=== PATIENT | female | born 1960 | race Caucasian/White ===

== ENCOUNTER 2017-10-07 18:54 | Emergency (ER) | payer OTHER, BC ==
--- NOTE | 2017-10-07 20:01 | ER Document Report ---
HPI - HPI Pain Level: 5 Notes: Patient is a 57-year-old female with a history of hypertension who presents to the ED complaining of right wrist pain status post injury prior to arrival while at work. Patient states that she fell off of a ladder and landed on her wrist. She did not hit her head or have any loss of consciousness, nausea/ vomiting. Patient states that she is swelling and bruising to her wrist and has difficulty moving the range of motion because of the pain. She denies any drug allergies. She has no other concerns or complaints at this time. Patient is not on any blood thinners. Denies any headache, fever, head injury, neck pain, changes in vision/speech/mentation/hearing, URI, sore throat, chest pain, palpitations, syncope, cough, shortness of breath, wheeze, dyspnea, abdominal pain, nausea/vomiting/diarrhea, urinary retention, dysuria, hematuria, numbness/ tingling, muscle paralysis/weakness, or rash. - ROS Systems Reviewed and Negative: Yes All other systems reviewed and negative Past Medical History - Social History Smoking Status: Never Smoker Family History: Reviewed & Not Pertinent - Past Medical History Cardiac Medical History: Reports: Hx Hypercholesterolemia, Hx Hypertension Past Surgical History: Reports: Hx Section - Immunizations Hx Diphtheria, Pertussis, Tetanus Vaccination: Yes Vertical Provider Document - CONSTITUTIONAL Agree With Documented VS: Yes Notes: PHYSICAL EXAMINATION: GENERAL: Well-appearing, well-nourished and in no acute distress. Head: atraumatic. LUNGS: Breath sounds clear to auscultation bilaterally and equal. No wheezes rales or rhonchi. HEART: Regular rate and rhythm without murmurs, rubs, gallops. Musculoskeletal: Rt wrist: LROM to passive/active. Strength 4+/5 due to pain. N /V intact distal. + tenderness to the distal radius. No bony tenderness of the hand. Extremities: No cyanosis, clubbing, or edema b/l. Peripheral pulses 2+. Capillary refill less than 3 seconds. NEUROLOGICAL: Normal speech, normal gait. Normal sensory, motor exams PSYCH: Normal mood, normal affect. SKIN: Warm, Dry, normal turgor, no rashes or lesions noted. - INFECTION CONTROL TRAVEL OUTSIDE OF THE [place] IN LAST 30 DAYS: No Course - Re-evaluation Re-evalutation: 10/07/17 20:46 Patient is an afebrile, well-hydrated, 57-year-old female who presents to the ED with a distal radius fracture. Vitals are acceptable without any significant tachycardia, tachypnea, or hypoxia. PE is otherwise unremarkable for any neurovascular compromise, obvious tendon/ligament rupture, open fracture , septic joint. See x-ray result. Reviewed XR with Dr. Alfred. No reduction warranted at this time in the ED. splint was placed and sling provided. Motrin was given p.o. No other labs or imaging warranted at this time based on H&P. Conservative measures for symptoms. Call orthopedics tomorrow to schedule an appointment for further evaluation and management. Return to the ED with any worsening/concerning symptoms otherwise as reviewed in discharge. Patient is in agreement. Urine drug screen ordered per pt's request for worker's comp. - Vital Signs Vital signs: Temp Pulse Resp BP Pulse Ox 98.8 F 82 18 99 10/07/17 18:57 10/07/17 18:57 10/07/17 18:57 10/07/17 18:57 Procedures - Immobilization Right Wrist Time completed: 20:35 Pre-Proc Neuro Vasc Exam: Normal Immobilizer type: Sugar tong Performed by: PCT Post-Proc Neuro Vasc Exam: Normal, Unchanged from pre-exam Discharge - Discharge Clinical Impression: Right radial fracture Qualifiers: Encounter type: initial encounter Radius location: distal Fracture type: closed Fracture morphology: unspecified fracture morphology Qualified Code(s): S52.501A - Unspecified fracture of the lower end of right radius, initial encounter for closed fracture Condition: Stable Disposition: HOME, SELF-CARE Instructions: Fractured Radius ([facility]) Additional Instructions: Rest, Ice, Compression, Elevation Use splint/sling as directed Tylenol/ibuprofen as needed F/u with your PCP in 3-5 days for a recheck Call orthopedics tomorrow to schedule an appointment for further evaluation and management Return to the ED with any worsening symptoms and/or development of fever, headache, chest pain, palpitations, syncope, shortness of breath, trouble breathing, abdominal pain, n/v/d, muscle weakness/paralysis, numbness/tingling, swelling, redness, or other worsening symptoms that are concerning to you. Prescriptions: Morphine Sulfate [Morphine Ir 15 Mg Tablet] 15 mg PO TID #15 tablet Forms: Elevated Blood Pressure Referrals: [facility] ([facility]) [Provider Group] - 10/11/17
[2017-10-07] MEDS ORDERED: IBUPROFEN 600 MG TABLET PO ONE (20:02)
--- NOTE | 2017-10-07 20:22 | RADIOLOGY REPORT (SQ) ---
EXAM DESCRIPTION: HAND RIGHT 3 VIEWS; WRIST RIGHT 3 VIEWS COMPLETED DATE/TIME: 10/07/2017 7:50 pm REASON FOR STUDY: fall pain injury COMPARISON: None. EXAM PARAMETERS: NUMBER OF VIEWS: Six views. TECHNIQUE: AP, lateral and oblique radiographic images acquired of the right hand and wrist. LIMITATIONS: None. FINDINGS: MINERALIZATION: Normal. BONES: Comminuted fracture of the distal radius metaphysis with mild impaction.No other fracture or d islocation. No worrisome bone lesions. JOINTS: No effusions. SOFT TISSUES: No soft tissue swelling. No foreign body. OTHER: No other significant finding. IMPRESSION: Comminuted fracture of the distal radius metaphysis with mild impaction. TECHNICAL DOCUMENTATION: JOB ID: [id number] [place]-72 2010 [employer]- All Rights Reserved Reading location - IP/workstation name: [email or web address]
--- NOTE | 2017-10-07 20:22 | RADIOLOGY REPORT (SQ) ---
EXAM DESCRIPTION: HAND RIGHT 3 VIEWS; WRIST RIGHT 3 VIEWS COMPLETED DATE/TIME: 10/07/2017 7:50 pm REASON FOR STUDY: fall pain injury COMPARISON: None. EXAM PARAMETERS: NUMBER OF VIEWS: Six views. TECHNIQUE: AP, lateral and oblique radiographic images acquired of the right hand and wrist. LIMITATIONS: None. FINDINGS: MINERALIZATION: Normal. BONES: Comminuted fracture of the distal radius metaphysis with mild impaction.No other fracture or d islocation. No worrisome bone lesions. JOINTS: No effusions. SOFT TISSUES: No soft tissue swelling. No foreign body. OTHER: No other significant finding. IMPRESSION: Comminuted fracture of the distal radius metaphysis with mild impaction. TECHNICAL DOCUMENTATION: JOB ID: [id number] [place]-72 2010 [employer]- All Rights Reserved Reading location - IP/workstation name: [email or web address]
[2017-10-07 20:56] VITALS: BP 156/95
[2017-10-07 21:42] LABS: URINE AMPHETAMINES SCREEN NEGATIVE; URINE BARBITURATES SCREEN NEGATIVE; URINE BENZODIAZEPINES SCREEN NEGATIVE; URINE COCAINE SCREEN NEGATIVE; URINE MARIJUANA (THC) SCREEN NEGATIVE; URINE METHADONE SCREEN NEGATIVE; URINE PHENCYCLIDINE SCREEN NEGATIVE
== END 2017-10-07 21:17 | disposition home or self-care (01) ==
LOC: ER 18:54
PROC: 2W3CX1Z Immobilization of Right Lower Arm using Splint (ICD-10-PCS; principal; 2017-10-07)
DX: S52.501A Unspecified fracture of the lower end of right radius, initial encounter for closed fracture (principal); M25.531 Pain in right wrist; W11.XXXA Fall on and from ladder, initial encounter; Y99.0 Civilian activity done for income or pay; E78.00 Pure hypercholesterolemia, unspecified; I10 Essential (primary) hypertension
CPT/HCPCS: 80307; 99284

== ENCOUNTER 2018-01-10 10:20 | Observation (INO) | payer BC, OTHER ==
--- NOTE | 2018-01-10 10:41 | ER Document Report ---
ED Medical Screen (RME) - General Mode of Arrival: Ambulatory Information source: Patient TRAVEL OUTSIDE OF THE [place] IN LAST 30 DAYS: No - General Chief Complaint: High Blood Pressure Stated Complaint: BLOOD PRESSURE ISSUE Time Seen by Provider: 01/10/18 10:33 Notes: Patient is a 57 year old female presenting to the emergency department complaining of multiple symptoms including tongue swelling, elevated blood pressure and dizziness. Patient states she woke up this morning and noticed her tongue was swollen and proceeded to go to urgent care. While in urgent care she was noted to have a systolic blood pressure over 200 and received 3 tablets of aspirin, 125 Solumedrol IM and .1mg of Clonidine x2. Patient states she was instructed to come to the emergency department due to concerns of a stroke. Patient also complains of 3 days of worsening dizziness which is described as the room spinning and feeling light headed. Patients PCP is Dr. Jurado at [facility]. Patient is currently prescribed Lisinopril Hydrocholorthiazide 40/25 2x daily. GENERAL: Alert, interacts well. No acute distress. HEAD: Normocephalic, atraumatic. EYES: Pupils equal, round, and reactive to light. Extraocular movements intact. ENT: Oral mucosa moist, mild right side tongue swelling. NECK: Full range of motion. Supple. Trachea midline. EXTREMITIES: Moves all 4 extremities spontaneously. NEUROLOGICAL: Alert and oriented x3. Normal speech. Cranial nerves II through XII grossly intact. Finger to nose testing intact. Biceps and patellar DTRs 2+ bilaterally. PSYCH: Normal affect, normal mood. SKIN: Warm, dry, normal turgor. No rashes or lesions noted. I have greeted and performed a rapid initial assessment of this patient. A comprehensive ED assessment and evaluation of the patient, analysis of test results and completion of the medical decision making process will be conducted by additional ED providers. (SALLY PADGETT) - Related Data Allergies/Adverse Reactions: No Known Allergies Allergy (Verified 01/10/18 10:31) Past Medical History - Past Medical History Cardiac Medical History: Reports: Hx Hypercholesterolemia, Hx Hypertension Renal/ Medical History: Denies: Hx Peritoneal Dialysis Past Surgical History: Reports: Hx Section - Immunizations Hx Diphtheria, Pertussis, Tetanus Vaccination: Yes - Vital signs Vitals: Temp Pulse Resp BP Pulse Ox 97.9 F 68 16 175/86 H 100 01/10/18 10:33 10/11/18 10:33 01/10/18 10:33 01/10/18 10:33 01/10/18 10:33 Course - Re-evaluation Re-evalutation: 01/10/18 10:49 No evidence of stroke at this time. Patient did have symptomatic hypertension at the urgent care. Blood pressure has come down and her symptoms are improving. CT scan of the head will be performed as well as blood work and EKG. Swelling of her tongue is gone down, there is only residual swelling noted on examination. Possibly mild angioedema. Transfer to main portion of the emergency department for completion of workup. (LAQUITA HINOJOSA) - Vital Signs Vital signs: Temp Pulse Resp BP Pulse Ox 97.9 F 68 16 175/86 H 100 01/10/18 10:33 01/10/18 10:33 01/10/18 10:33 01/10/18 10:33 01/10/18 10:33
[2018-01-10 11:24] LABS: APPEARANCE,URINE CLEAR; BILIRUBIN,URINE NEGATIVE (NEGATIVE); COLOR,URINE YELLOW; GLUCOSE, URINE NEGATIVE (NEGATIVE); KETONES,URINE NEGATIVE (NEGATIVE); LEUKOCYTE ESTERASE,URINE TRACE (NEGATIVE); NITRITE,URINE NEGATIVE (NEGATIVE); PROTEIN,URINE NEGATIVE (NEGATIVE); URINE SPECIFIC GRAVITY 1.014; UROBILINOGEN,URINE NEGATIVE mg/dL (<2.0)
[2018-01-10 11:28] LABS: ABSOLUTE EOSINOPHILS # (AUTO) 0.2 10^3/uL (0.0-0.6); ABSOLUTE LYMPHOCYTES (AUTO) 0.8 10^3/uL (0.5-4.7); ABSOLUTE MONOCYTES (AUTO) 0.3 10^3/uL (0.1-1.4); ABSOLUTE NEUT (AUTO) 6.8 10^3/uL (1.7-8.2); BASOPHILS % (AUTO) 0.3 % (0-2); EOSINOPHILS % (AUTO) 2.5 % (0-6); HEMATOCRIT 36.3 % (36.0-47.0); HEMOGLOBIN 12.3 g/dL (12.0-15.5); MEAN CORPUSCULAR HEMOGLOBIN 26.8 pg (27.0-33.4); MEAN CORPUSCULAR HGB CONC 33.8 g/dL (32.0-36.0); MEAN CORPUSCULAR VOLUME 79 fl (80-97); MONOCYTES % (AUTO) 4.2 % (3-13); PLATELET COUNT 195 10^3/uL (150-450); RED BLOOD COUNT 4.58 10^6/uL (3.72-5.28); RED CELL DISTRIBUTION WIDTH 14.6 % (11.5-14.0); TOTAL CELLS COUNTED % (AUTO) 100 %; WHITE BLOOD COUNT 8.2 10^3/uL (4.0-10.5)
--- NOTE | 2018-01-10 11:42 | ER Document Report ---
ED General - General Chief Complaint: High Blood Pressure Stated Complaint: BLOOD PRESSURE ISSUE Time Seen by Provider: 01/10/18 10:33 Mode of Arrival: Ambulatory Information source: Patient Notes: 57-year-old female presents emergency department with multiple complaints. Patient states that she woke up this morning with some tongue swelling. She went to the urgent care primarily for this reason. When she got there they noticed that her blood pressure was elevated and wanted her to take an ambulance to the emergency department. Patient declined to the ambulance. Patient's daughter brought her to the emergency department. Patient was given 3 81mg aspirin, 125 mg of Solu-Medrol IM and 0.1 mg of clonidine x2 doses prior to leaving. Patient states that over the last 3 days she has had lightheadedness. She has been checking her blood pressure and has noticed it to be elevated above 200 systolic. She is currently on lisinopril/ hydrochlorothiazide. She says she's been on this medication for 8 years. She denies any chest pain or shortness of breath. Patient's primary care physician is Dr. Jurado at [facility] [email or web address]. TRAVEL OUTSIDE OF THE [place] IN LAST 30 DAYS: No - HPI Onset: This morning Onset/Duration: Sudden Quality of pain: No pain Severity: None Associated symptoms: None Exacerbated by: Denies Relieved by: Denies Similar symptoms previously: No Recently seen / treated by doctor: No - Related Data Allergies/Adverse Reactions: No Known Allergies Allergy (Verified 01/10/18 10:31) Past Medical History - General Information source: Patient - Social History Smoking Status: Never Smoker Chew tobacco use (# tins/day): No Frequency of alcohol use: None Drug Abuse: None Family History: Reviewed & Not Pertinent Patient has suicidal ideation: No Patient has homicidal ideation: No - Past Medical History Cardiac Medical History: Reports: Hx Hypercholesterolemia, Hx Hypertension Renal/ Medical History: Reports: Hx Kidney Stones. Denies: Hx Peritoneal Dialysis Past Surgical History: Reports: Hx Section, Hx Kidney (Renal Surgery) - Immunizations Hx Diphtheria, Pertussis, Tetanus Vaccination: Yes Review of Systems - Review of Systems Constitutional: No symptoms reported EENT: Other - tongue swelling Cardiovascular: Dizziness, Lightheaded Respiratory: No symptoms reported Gastrointestinal: No symptoms reported Genitourinary: No symptoms reported Musculoskeletal: No symptoms reported Skin: No symptoms reported Hematologic/Lymphatic: No symptoms reported Neurological/Psychological: No symptoms reported -: Yes All other systems reviewed and negative Physical Exam - Vital signs Vitals: Temp Pulse Resp BP Pulse Ox 97.9 F 68 16 175/86 H 100 01/10/18 10:33 01/10/18 10:33 01/10/18 10:33 01/10/18 10:33 01/10/18 10:33 - Notes Notes: PHYSICAL EXAMINATION: GENERAL: Well-appearing, well-nourished and in no acute distress. HEAD: Atraumatic, normocephalic. EYES: Pupils equal round and reactive to light, extraocular movements intact, conjunctiva are normal. ENT: Nares patent, oropharynx clear without exudates. Moist mucous membranes. Slight tongue swelling. NECK: Normal range of motion, supple without lymphadenopathy LUNGS: Breath sounds clear to auscultation bilaterally and equal. No wheezes rales or rhonchi. HEART: Regular rate and rhythm without murmurs ABDOMEN: Soft, nontender, nondistended abdomen. No guarding, no rebound. No masses appreciated. Female : deferred Musculoskeletal: Normal range of motion, no pitting or edema. No cyanosis. NEUROLOGICAL: Cranial nerves grossly intact. Normal speech, normal gait. Normal sensory, motor exams PSYCH: Normal mood, normal affect. SKIN: Warm, Dry, normal turgor, no rashes or lesions noted. Course - Re-evaluation Re-evalutation: 01/10/18 13:23 Labs and imaging obtained. Creatinine is slightly elevated. Patient denies hx of kidney disease. Will admit to hospitalist for observation of angioedema and BP control. Patient is agreeable with the plan of care. 01/10/18 13:27 - Vital Signs Vital signs: Temp Pulse Resp BP Pulse Ox 97.9 F 64 14 164/74 H 97 01/10/18 10:33 01/10/18 12:25 01/10/18 13:05 01/10/18 13:05 01/10/18 13:05 - Laboratory Result Diagrams: 01/10/18 11:15 01/10/18 11:15 Laboratory results interpreted by me: 01/10/18 01/10/18 01/10/18 10:43 11:15 11:15 MCV 79 L MCH 26.8 L RDW 14.6 H Seg Neutrophils % 83.0 H Lymphocytes % 10.0 L BUN 35 H Creatinine 1.38 H Est GFR ( Amer) 48 L Est GFR (Non-Af Amer) 39 L Urine Blood SMALL H Ur Leukocyte Esterase TRACE H Discharge - Discharge Clinical Impression: Angioedema Qualifiers: Encounter type: initial encounter Qualified Code(s): T78.3XXA - Angioneurotic edema, initial encounter Hypertension Qualifiers: Hypertension type: unspecified Qualified Code(s): I10 - Essential (primary) hypertension Renal failure, acute Qualifiers: Acute renal failure type: unspecified Qualified Code(s): N17.9 - Acute kidney failure, unspecified Condition: Good Disposition: ADMITTED OBSERVATION Admitting Provider: Hospitalist Unit Admitted: [facility]
[2018-01-10 11:45] LABS: ALANINE AMINOTRANSFERASE 23 U/L (9-52); ALBUMIN 4.2 g/dL (3.5-5.0); ALKALINE PHOSPHATASE 79 U/L (38-126); ANION GAP 11 (5-19); ASPARTATE AMINO TRANSFERASE 25 U/L (14-36); BILIRUBIN,DIRECT 0.3 mg/dL (0.0-0.4); BILIRUBIN,TOTAL 0.9 mg/dL (0.2-1.3); BLOOD UREA NITROGEN 35 mg/dL (7-20); CALCIUM 9.1 mg/dL (8.4-10.2); CARBON DIOXIDE 27 mmol/L (22-30); CHLORIDE 100 mmol/L (98-107); GLUCOSE 96 mg/dL (75-110); POTASSIUM 3.8 mmol/L (3.6-5.0); SODIUM 137.6 mmol/L (137-145); TOTAL PROTEIN 7.2 g/dL (6.3-8.2)
--- NOTE | 2018-01-10 12:01 | RADIOLOGY REPORT (SQ) ---
EXAM DESCRIPTION: CT HEAD WITHOUT COMPLETED DATE/TIME: 01/10/2018 11:51 am REASON FOR STUDY: dizziness COMPARISON: None. TECHNIQUE: Axial images acquired through the brain without intravenous contrast. Images reviewed wi th bone, brain and subdural windows. Additional sagittal and coronal reconstructions were generated. Images stored on PACS. All CT scanners at this facility use dose modulation, iterative reconstruction, and/or weight based d osing when appropriate to reduce radiation dose to as low as reasonably achievable (ALARA). [facility]: Dose Right [facility]: CareDose [facility]: Dose Right [facility]: Teradose 4D [facility]: Xendex Holding RADIATION DOSE: CT Rad equipment meets quality standard of care and radiation dose reduction techniq ues were employed. CTDIvol: 53.2 mGy. DLP: 1017 mGy-cm. mGy. LIMITATIONS: None. FINDINGS: VENTRICLES: Normal size and contour. CEREBRUM: No masses. No hemorrhage. No midline shift. No evidence for acute infarction. Normal gra y/white matter differentiation. No areas of low density in the white matter. CEREBELLUM: No masses. No hemorrhage. No alteration of density. No evidence for acute infarction. EXTRAAXIAL SPACES: No fluid collections. No masses. ORBITS AND GLOBE: No intra- or extraconal masses. Normal contour of globe without masses. CALVARIUM: No fracture. PARANASAL SINUSES: No fluid levels. SOFT TISSUES: No mass or hematoma. OTHER: No other significant finding. IMPRESSION: NORMAL BRAIN CT WITHOUT CONTRAST. EVIDENCE OF ACUTE STROKE: NO. COMMENT: Quality ID # [id number]: Final reports with documentation of one or more dose reduction techniques (e.g., Automated exposure control, adjustment of the mA and/or kV according to patient size, use of iterative reconstruction technique) TECHNICAL DOCUMENTATION: JOB ID: [id number] [employer]- All Rights Reserved Reading location - IP/workstation name: [email or web address]
[2018-01-10] MEDS ORDERED: HYDRALAZINE HCL INJ/PF 20 MG/1 ML SDV IV ONE (12:29)
[2018-01-10] MEDS ORDERED: ACETAMINOPHEN 325 MG TABLET PO ONE (13:04)
[2018-01-10] MEDS ORDERED: ONDANSETRON 4 MG TAB.RAPDIS PO PRN (14:24)
[2018-01-10] MEDS ORDERED: ONDANSETRON HCL INJ/PF 4 MG/2 ML SDV IV PRN (14:24)
[2018-01-10] MEDS ORDERED: ZOLPIDEM TARTRATE 5 MG TABLET PO PRN (14:24)
[2018-01-10] MEDS ORDERED: MAG HYDROX/AL HYDROX/SIMETH SUSP 30 ML UDCUP PO PRN (14:24)
[2018-01-10] MEDS ORDERED: ALBUTEROL SULFATE 0.083% NEB 2.5 MG/3 ML AMPUL NEB PRN (14:24)
[2018-01-10] MEDS ORDERED: MAGNESIUM HYDROXIDE SUSP 30 ML UDCUP PO PRN (14:24)
[2018-01-10] MEDS ORDERED: NORMAL SALINE 1000 ML 1,000 ML IV ONE (14:34)
[2018-01-10] MEDS ORDERED: DIPHENHYDRAMINE HCL 25 MG CAPSULE PO PRN (14:49)
--- NOTE | 2018-01-10 14:58 | PDOC H&P ---
History of Present Illness Admission Date/PCP: 01/10/18 13:31 History of Present Illness: LAVELLE APONTE is a 57 year old female with a past medical history significant for hypertension, hyperlipidemia, remote kidney stones who presented to the emergency department today via EMS from her [facility] office with angioedema of the right side of her tongue and right lips and hypertensive urgency; noted to have blood pressures 220/100 with complaint of persistent headache and dizziness. The patient was provided clonidine 0.2 mg and Solu-Medrol 125 mg IV per EMS prior to arrival. Evaluation in the emergency department reveals unremarkable laboratory evaluation other than acute kidney injury (creatinine 1.35, BUN 35), EKG demonstrating a normal sinus rhythm with LVH, and a normal head CT. She is referred to the hospitalist service for observational admission to monitor her resolving angioedema and management of hypertensive urgency. Past Medical History Cardiac Medical History: Reports: Hyperlipidema, Hypertension Denies: Coronary Artery Disease, Myocardial Infarction Pulmonary Medical History: Reports: None EENT Medical History: Reports: None Neurological Medical History: Reports: None Endocrine Medical History: Reports: Obesity Renal/ Medical History: Reports: None Malignancy Medical History: Reports: None GI Medical History: Reports: None Musculoskeltal Medical History: Reports: None Skin Medical History: Reports: None Psychiatric Medical History: Reports: None, General Anxiety Disorder Traumatic Medical History: Reports: None Hematology: Reports: None Infectious Medical History: Reports: None Past Surgical History Past Surgical History: Reports: Section Social History Information Source: Patient Lives with: Family Smoking Status: Never Smoker Frequency of Alcohol Use: None Hx Recreational Drug Use: No Drugs: None - Advance Directive Resuscitation Status: Do Not Resuscitate Surrogate healthcare decision maker:: The patient's daughter, Sheila Burgos, Family History Family History: Reviewed & Not Pertinent Parental Family History Reviewed: Yes Children Family History Reviewed: Yes Sibling(s) Family History Reviewed.: Yes Medication/Allergy Home Medications: Aspirin/Acetaminophen/Caffeine [Excedrin Migraine Caplet] 1 tab PO Q4HP PRN 02/17 Lisinopril/Hydrochlorothiazide [Zestoretic 20-25 mg Tablet] 1 tab PO DAILY 01/10 Allergies/Adverse Reactions: No Known Allergies Allergy (Verified 01/10/18 10:31) Review of Systems Constitutional: PRESENT: fatigue, headache(s). ABSENT: chills, fever(s), weight gain, weight loss Eyes: ABSENT: visual disturbances Ears: ABSENT: hearing changes Nose, Mouth, and Throat: PRESENT: other - Right tongue swelling Cardiovascular: ABSENT: chest pain, dyspnea on exertion, edema, orthropnea, palpitations Respiratory: ABSENT: cough, dyspnea, hemoptysis Gastrointestinal: ABSENT: abdominal pain, constipation, diarrhea, hematemesis, hematochezia, nausea, vomiting Genitourinary: ABSENT: dysuria, hematuria Musculoskeletal: ABSENT: joint swelling Integumentary: ABSENT: rash, wounds Neurological: ABSENT: abnormal gait, abnormal speech, confusion, dizziness, focal weakness, syncope Psychiatric: PRESENT: anxiety. ABSENT: depression, homidical ideation, suicidal ideation Endocrine: ABSENT: cold intolerance, heat intolerance, polydipsia, polyuria Hematologic/Lymphatic: ABSENT: easy bleeding, easy bruising Physical Exam Vital Signs: Temp Pulse Resp BP Pulse Ox 97.9 F 64 14 164/74 H 97 01/10/18 10:33 01/10/18 12:25 01/10/18 13:05 01/10/18 13:05 01/10/18 13:05 General appearance: PRESENT: no acute distress, cooperative, obese, well- developed, well-nourished Head exam: PRESENT: atraumatic, normocephalic Eye exam: PRESENT: conjunctiva pink, EOMI, PERRLA. ABSENT: scleral icterus Ear exam: PRESENT: normal external ear exam Mouth exam: PRESENT: moist, tongue midline, other - Patient report of tongue swelling; unremarkable on exam Neck exam: ABSENT: carotid bruit, JVD, lymphadenopathy, thyromegaly Respiratory exam: PRESENT: clear to auscultation carito, symmetrical, unlabored. ABSENT: rales, rhonchi, wheezes Cardiovascular exam: PRESENT: RRR, +S1, +S2. ABSENT: diastolic murmur, rubs, systolic murmur Pulses: PRESENT: normal dorsalis pedis pul Vascular exam: PRESENT: normal capillary refill GI/Abdominal exam: PRESENT: normal bowel sounds, soft. ABSENT: distended, guarding, mass, organolmegaly, rebound, tenderness Rectal exam: PRESENT: deferred Extremities exam: PRESENT: full ROM. ABSENT: calf tenderness, clubbing, pedal edema Neurological exam: PRESENT: alert, awake, oriented to person, oriented to place , oriented to time, oriented to situation, CN II-XII grossly intact. ABSENT: motor sensory deficit Psychiatric exam: PRESENT: appropriate affect, normal mood. ABSENT: homicidal ideation, suicidal ideation Skin exam: PRESENT: dry, intact, warm. ABSENT: cyanosis, rash Results Impressions: Head CT 01/10/18 10:41 IMPRESSION: NORMAL BRAIN CT WITHOUT CONTRAST. EVIDENCE OF ACUTE STROKE: NO. Assessment & Plan - Diagnosis (1) Angioedema Qualifiers: Encounter type: initial encounter Qualified Code(s): T78.3XXA - Angioneurotic edema, initial encounter Is this a current diagnosis for this admission?: Yes Plan: Plan waking this morning, the patient noted that the right side of her tongue was swollen and she was having difficulty talking and swallowing. She presented to her primary care provider's office who subsequently sent her to the emergency department via EMS. Of note, the patient has had several years of intermittent lisinopril use. Her lisinopril was recently resumed (approximately 2 weeks ago) at double her previous dose after being off the medication for several months. She denies any other new foods, medications, or environmental exposures. EMS administered Solu-Medrol 125 mg in route. She is admitted to the [facility] on continuous cardiac telemetry. Lisinopril/HCTZ has been discontinued. We will continue steroid taper. Benadryl every 8 hours as needed. (2) Hypertensive urgency Is this a current diagnosis for this admission?: Yes Plan: Upon arrival to the emergency department the patient's blood pressures were noted to be persistently elevated; highest 209/82. The patient had received clonidine 0.2 mg p.o. by EMS personnel and has been provided an additional 10 mg IV hydralazine for the emergency department provider. The patient tells me that she commonly has triple digit blood pressures. EKG demonstrated normal sinus rhythm with LVH. Head CT is benign. Troponin is pending We will check TSH with a.m. labs. Urine tox screen is pending. Lisinopril is held secondary to presumed angioedema. Will start propanolol 20 mg every 6 hours for dual benefit of migraine prevention. Consider renal ultrasound if obtaining blood pressure control is difficult. IV hydralazine 10 mg every 6 hours as needed. (3) SHANDRA (acute kidney injury) Is this a current diagnosis for this admission?: Yes Plan: The patient is admitted with a creatinine of 1.38 and BUN of 35; no known baseline. SHANDRA likely secondary to dehydration; however, hypertensive crisis is consider. Urinalysis is heme (+) Will provide a 1L NS bolus followed by gentle maintenance fluids. Avoid nephrotoxic medications as able. Daily chemistries. (4) Headache Qualifiers: Headache type: unspecified Headache chronicity pattern: chronic headache Is this a current diagnosis for this admission?: Yes Plan: The patient reports daily headaches, often present upon waking, described as an intense aching in a headband pattern. The patient states that she does not miss work due to her headaches, however, immediately upon returning home and on her days off, participates very little in social activities or chores due to her headaches. She endorses overutilization of NSAIDs and Excedrin Migraine with minimal relief. She denies aura, photophobia, phonophobia, nausea and vomiting associated with her headaches. Head CT is normal. Will trial propanolol form to purpose; migraine prevention and blood pressure control. Consider Topamax. Recommend optometry screening as an outpatient. (5) Obesity (BMI 30-39.9) Is this a current diagnosis for this admission?: Yes Plan: Dietary discretion is advised. - Time Time Spent: 50 to 70 Minutes Medications reviewed and adjusted accordingly: Yes Anticipated discharge: Home Within: within 48 hours - Plan Summary Plan Summary: PUD PPx: Pepcid DVT PPx: Heparin
[2018-01-10 15:04] LABS: URINE AMPHETAMINES SCREEN NEGATIVE; URINE BARBITURATES SCREEN NEGATIVE; URINE BENZODIAZEPINES SCREEN NEGATIVE; URINE COCAINE SCREEN NEGATIVE; URINE MARIJUANA (THC) SCREEN NEGATIVE; URINE METHADONE SCREEN NEGATIVE; URINE PHENCYCLIDINE SCREEN NEGATIVE
[2018-01-10] MEDS: PROPRANOLOL HCL 20 MG TABLET PO SCH ×3 (16:26→23:13)
[2018-01-10] MEDS: NORMAL SALINE 1000 ML 1,000 ML IV PRN (19:32)
[2018-01-10] MEDS: FAMOTIDINE 20 MG TABLET PO SCH (22:09)
[2018-01-10] MEDS: HEPARIN SOD (PORCINE) 5,000 UNIT/ML 1 ML SYRINGE SUBCUT SCH (22:09)
--- NOTE | 2018-01-10 22:30 | EKG REPORT ---
SEVERITY:- ABNORMAL ECG - SINUS RHYTHM PROBABLE LVH WITH SECONDARY REPOL ABNRM : Confirmed by: Tabitha Fernandez MD 10-Jan-2018 22:29:08
[2018-01-10] MEDS: HYDRALAZINE HCL INJ/PF 20 MG/1 ML SDV IV PRN (23:13)
[2018-01-11] MEDS: NORMAL SALINE 1000 ML 1,000 ML IV PRN (04:12)
[2018-01-11] MEDS: HYDRALAZINE HCL INJ/PF 20 MG/1 ML SDV IV PRN ×3 (04:12→15:53)
[2018-01-11] MEDS: ACETAMINOPHEN 325 MG TABLET PO PRN (04:16)
[2018-01-11] MEDS: HEPARIN SOD (PORCINE) 5,000 UNIT/ML 1 ML SYRINGE SUBCUT SCH ×3 (05:09→22:57)
[2018-01-11] MEDS: PROPRANOLOL HCL 20 MG TABLET PO SCH ×4 (05:10→23:01)
[2018-01-11] MEDS ORDERED: HYDRALAZINE HCL INJ/PF 20 MG/1 ML SDV IV ONE (05:15)
[2018-01-11 05:57] LABS: HEMATOCRIT 34.1 % (36.0-47.0); HEMOGLOBIN 11.6 g/dL (12.0-15.5); MEAN CORPUSCULAR HEMOGLOBIN 26.7 pg (27.0-33.4); MEAN CORPUSCULAR HGB CONC 34.2 g/dL (32.0-36.0); MEAN CORPUSCULAR VOLUME 78 fl (80-97); PLATELET COUNT 202 10^3/uL (150-450); RED BLOOD COUNT 4.37 10^6/uL (3.72-5.28); RED CELL DISTRIBUTION WIDTH 14.6 % (11.5-14.0); WHITE BLOOD COUNT 9.5 10^3/uL (4.0-10.5)
[2018-01-11 06:12] LABS: ANION GAP 11 (5-19); BLOOD UREA NITROGEN 29 mg/dL (7-20); CALCIUM 9.7 mg/dL (8.4-10.2); CARBON DIOXIDE 24 mmol/L (22-30); CHLORIDE 106 mmol/L (98-107); CHOLESTEROL 171.53 mg/dL (0-200); GLUCOSE 104 mg/dL (75-110); POTASSIUM 3.8 mmol/L (3.6-5.0); SODIUM 140.6 mmol/L (137-145); TRIGLYCERIDES 85 mg/dL (<150)
[2018-01-11 06:22] LABS: DIRECT LDL 82 mg/dL (<100)
[2018-01-11] MEDS ORDERED: KETOROLAC TROMETHAMINE INJ/PF 30 MG/1 ML SDV IV ONE (08:00)
[2018-01-11] MEDS ORDERED: METOPROLOL TARTRATE PF/INJ 5 MG/5 ML SDV IV ONE (08:00)
[2018-01-11] MEDS ORDERED: HYDROCHLOROTHIAZIDE 12.5 MG TABLET PO SCH (08:00)
[2018-01-11] MEDS ORDERED: ONDANSETRON HCL INJ/PF 4 MG/2 ML SDV IV PRN (08:30)
[2018-01-11] MEDS ORDERED: ONDANSETRON 4 MG TAB.RAPDIS PO PRN (08:30)
[2018-01-11] MEDS: FAMOTIDINE 20 MG TABLET PO SCH ×2 (09:49→22:56)
[2018-01-11] MEDS: DOCUSATE SODIUM 100 MG CAPSULE PO SCH (09:50)
[2018-01-11] MEDS ORDERED: AMLODIPINE BESYLATE 5 MG TABLET PO SCH (10:00)
[2018-01-11 10:45] LABS: FREE T3 2.33 pg/mL (2.77-5.27)
[2018-01-11 10:46] LABS: FREE T4 (FREE THYROXINE) 1.59 ng/dL (0.78-2.19)
--- NOTE | 2018-01-11 13:20 | PDOC PROGRESS REPORT ---
Subjective Progress Note for:: 01/11/18 Subjective:: The patient is a 57 year old female with a past medical history significant for hypertension, hyperlipidemia, remote kidney stones who was admitted 01/10/18 for angioedema and hypertensive urgency. The patient is seen on morning rounds. She is found resting in bed on room air. She reports a persistent headache that has been ongoing since the middle of the night and unresponsive to Tylenol. She is frustrated by her elevated blood pressures this morning and tearful regarding the remote of her . She denies dizziness, photophobia, phonophobia, chest pain, palpitations, dyspnea, orthopnea, abdominal pain, nausea and vomiting. She reports that her headache is her typical daily discomfort. She has no other questions or concerns at this time. No concerns per nursing. Reason For Visit: ANGIOEDEMA, HYPERTENSION URGENCY Physical Exam Vital Signs: Temp Pulse Resp BP Pulse Ox 98.8 F 69 16 173/55 H 100 01/11/18 11:10 01/11/18 11:10 01/11/18 11:10 01/11/18 11:10 01/11/18 11:10 Intake & Output 01/10/18 01/11/18 01/12/18 06:59 06:59 06:59 Intake Total 2436 Output Total 1200 Balance 1236 Weight 111.9 kg General appearance: PRESENT: no acute distress, cooperative, obese, well- developed, well-nourished Head exam: PRESENT: atraumatic, normocephalic Eye exam: PRESENT: conjunctiva pink, EOMI, PERRLA. ABSENT: scleral icterus Ear exam: PRESENT: normal external ear exam Mouth exam: PRESENT: moist, tongue midline Neck exam: ABSENT: carotid bruit, JVD, lymphadenopathy, thyromegaly Respiratory exam: PRESENT: clear to auscultation carito, symmetrical, unlabored. ABSENT: rales, rhonchi, wheezes Cardiovascular exam: PRESENT: RRR, +S1, +S2. ABSENT: diastolic murmur, rubs, systolic murmur Pulses: PRESENT: normal dorsalis pedis pul Vascular exam: PRESENT: normal capillary refill GI/Abdominal exam: PRESENT: normal bowel sounds, soft. ABSENT: distended, guarding, mass, organolmegaly, rebound, tenderness Rectal exam: PRESENT: deferred Extremities exam: PRESENT: full ROM. ABSENT: calf tenderness, clubbing, pedal edema Neurological exam: PRESENT: alert, awake, oriented to person, oriented to place , oriented to time, oriented to situation, CN II-XII grossly intact. ABSENT: motor sensory deficit Psychiatric exam: PRESENT: appropriate affect, depressed, other - Tearful. ABSENT: homicidal ideation, suicidal ideation Skin exam: PRESENT: dry, intact, warm. ABSENT: cyanosis, rash Results Laboratory Results: 01/11/18 05:39 01/11/18 05:39 01/11/18 01/11/18 01/11/18 05:39 05:39 05:39 WBC 9.5 RBC 4.37 Hgb 11.6 L Hct 34.1 L MCV 78 L MCH 26.7 L MCHC 34.2 RDW 14.6 H Plt Count 202 Sodium 140.6 Potassium 3.8 Chloride 106 Carbon Dioxide 24 Anion Gap 11 BUN 29 H Creatinine 1.05 Est GFR ( Amer) > 60 Est GFR (Non-Af Amer) 54 L Glucose 104 Calcium 9.7 Triglycerides 85 Cholesterol 171.53 LDL Cholesterol Direct 82 VLDL Cholesterol 17.0 HDL Cholesterol 59 TSH 0.33 L Free T4 Free T3 pg/mL 01/11/18 05:39 WBC RBC Hgb Hct MCV MCH MCHC RDW Plt Count Sodium Potassium Chloride Carbon Dioxide Anion Gap BUN Creatinine Est GFR ( Amer) Est GFR (Non-Af Amer) Glucose Calcium Triglycerides Cholesterol LDL Cholesterol Direct VLDL Cholesterol HDL Cholesterol TSH Free T4 1.59 Free T3 pg/mL 2.33 L Impressions: Head CT 01/10/18 10:41 IMPRESSION: NORMAL BRAIN CT WITHOUT CONTRAST. EVIDENCE OF ACUTE STROKE: NO. Assessment & Plan - Diagnosis (1) Angioedema Qualifiers: Encounter type: initial encounter Qualified Code(s): T78.3XXA - Angioneurotic edema, initial encounter Is this a current diagnosis for this admission?: Yes Plan: Resolved; likely secondary to lisinopril. She denies any other new foods, medications, or environmental exposures. Received Solu-Medrol 125 mg IV yesterday. She is admitted to the [facility] on continuous cardiac telemetry. Lisinopril/HCTZ has been discontinued. Benadryl every 8 hours as needed. (2) Hypertensive urgency Is this a current diagnosis for this admission?: Yes Plan: Blood pressures minimally improved overnight with start of propanolol. Continues to have primarily systolic hypertension (190/86) EKG demonstrated normal sinus rhythm with LVH. Head CT is benign. Troponin is pending TSH is low 0.33; however Free T3 and Free T4 do not support hyperthyroidism. Urine tox screen is negative. Renal Doppler is pending. Lisinopril is held secondary to presumed angioedema. Avoid all KAYKAY/ARBS. Continue propanolol 20 mg every 6 hours for dual benefit of migraine prevention. Start Norvasc 5 mg daily. Start Spironolacton 25 mg daily (for ENMANUEL). IV hydralazine 10 mg every 6 hours as needed. (3) SHANDRA (acute kidney injury) Is this a current diagnosis for this admission?: Yes Plan: Improved; creatinine and BUN trending down. SHANDRA likely secondary to dehydration; however, hypertensive crisis is considered. Urinalysis is heme (+) Renal Dopplers pending. Continue gentle maintenance fluids. Avoid nephrotoxic medications as able. Daily chemistries. (4) Headache Qualifiers: Headache type: unspecified Headache chronicity pattern: chronic headache Is this a current diagnosis for this admission?: Yes Plan: The patient reports daily headaches, often present upon waking, described as an intense aching in a headband pattern. The patient states that she does not miss work due to her headaches, however, immediately upon returning home and on her days off, participates very little in social activities or chores due to her headaches. She endorses overutilization of NSAIDs and Excedrin Migraine with minimal relief. She denies aura, photophobia, phonophobia, nausea and vomiting associated with her headaches. Head CT is normal. Thyroid panel is negative for hyperthyroidism. Continue propanolol for dual purpose; migraine prevention and blood pressure control. BP management as above. Consider Topamax. Recommend optometry screening as an outpatient. (5) Obesity (BMI 30-39.9) Is this a current diagnosis for this admission?: Yes Plan: Dietary discretion is advised. (6) Depression with anxiety Is this a current diagnosis for this admission?: Yes Plan: Discussed with patient; agreeable to initiating Lexapro. Declines psych evaluation. Recommended following up with an outpatient mental health provider. - Time Time Spent with patient: 25-34 minutes Medications reviewed and adjusted accordingly: Yes Anticipated discharge: Home
[2018-01-11] MEDS: ESCITALOPRAM OXALATE 10 MG TABLET PO SCH (22:56)
[2018-01-11] MEDS: ZOLPIDEM TARTRATE 5 MG TABLET PO PRN (22:56)
--- NOTE | 2018-01-11 23:34 | RADIOLOGY REPORT (SQ) ---
EXAM DESCRIPTION: US PROCEDURE NOT MAPPED WAITING ON [email or web address] US, RENAL COMPLETED DATE/TME: 01/11/2018 09:55 CLINICAL HISTORY: 57 years Female, Resistant HTN Comparison: None. LIMITATIONS: None. FINDINGS: 10-cm right kidney with mildly echogenic cortex, 12-cm left kidney with mild macrolobulation, and urinary bladder with demonstrated bilateral ureteral jet flow appear otherwise of unremarkable size, shape, echotexture, and vascularity. IMPRESSION: Normal renal sonogram.
[2018-01-12] MEDS: HYDRALAZINE HCL INJ/PF 20 MG/1 ML SDV IV PRN ×2 (03:17→08:48)
[2018-01-12 05:12] LABS: HEMATOCRIT 32.2 % (36.0-47.0); HEMOGLOBIN 10.9 g/dL (12.0-15.5); MEAN CORPUSCULAR HEMOGLOBIN 26.4 pg (27.0-33.4); MEAN CORPUSCULAR HGB CONC 33.8 g/dL (32.0-36.0); MEAN CORPUSCULAR VOLUME 78 fl (80-97); PLATELET COUNT 181 10^3/uL (150-450); RED BLOOD COUNT 4.12 10^6/uL (3.72-5.28); RED CELL DISTRIBUTION WIDTH 14.6 % (11.5-14.0); WHITE BLOOD COUNT 9.4 10^3/uL (4.0-10.5)
[2018-01-12] MEDS: PROPRANOLOL HCL 20 MG TABLET PO SCH (05:12)
[2018-01-12] MEDS: HEPARIN SOD (PORCINE) 5,000 UNIT/ML 1 ML SYRINGE SUBCUT SCH ×3 (05:14→21:02)
[2018-01-12 05:33] LABS: ANION GAP 9 (5-19); BLOOD UREA NITROGEN 31 mg/dL (7-20); CALCIUM 9.3 mg/dL (8.4-10.2); CARBON DIOXIDE 25 mmol/L (22-30); CHLORIDE 107 mmol/L (98-107); GLUCOSE 90 mg/dL (75-110); POTASSIUM 3.8 mmol/L (3.6-5.0); SODIUM 141.1 mmol/L (137-145)
[2018-01-12 08:40] LABS: ABSOLUTE RETICS # 0.052 10^6/uL (0.028-0.122); RETICULOCYTE COUNT (AUTO) 1.25 % (0.66-2.85)
[2018-01-12] MEDS: ACETAMINOPHEN 325 MG TABLET PO PRN (08:50)
[2018-01-12] MEDS: DOCUSATE SODIUM 100 MG CAPSULE PO SCH (09:33)
[2018-01-12] MEDS: AMLODIPINE BESYLATE 5 MG TABLET PO SCH (09:36)
[2018-01-12] MEDS: FAMOTIDINE 20 MG TABLET PO SCH ×2 (09:36→21:04)
[2018-01-12 09:54] LABS: FOLATE 6.97 ng/mL (>2.76)
[2018-01-12] MEDS ORDERED: SPIRONOLACTONE 25 MG TABLET PO SCH (10:00)
[2018-01-12] MEDS ORDERED: METOPROLOL TARTRATE 50 MG TABLET PO SCH (10:00)
[2018-01-12] MEDS ORDERED: LOSARTAN POTASSIUM 50 MG TABLET PO SCH (10:00)
[2018-01-12] MEDS ORDERED: FUROSEMIDE INJ/PF 20 MG/2 ML SDV IV ONE (10:30)
[2018-01-12] MEDS: MORPHINE SULFATE 10 MG/ML INJ IV PRN (11:42)
[2018-01-12] MEDS ORDERED: CHLORTHALIDONE 25 MG TABLET PO ONE (13:00)
[2018-01-12] MEDS: CARVEDILOL 12.5 MG TABLET PO SCH ×2 (14:09→21:04)
--- NOTE | 2018-01-12 15:45 | XCELERA REPORT ---
[address] [address] Transthoracic Echocardiogram Report Name: LAVELLE APONTE Age: 57 yrs Gender: Female : 1960 Patient Status: Inpatient Patient Location: [address] [place] [address] Study Date: 01/12/2018 02:12 PM Height: 66 in Weight: 253 lb BSA: 2.2 m2 Procedure: A complete two-dimensional transthoracic echocardiogram was performed (2D, M-mode, spectral and color flow Doppler). The study was technically adequate with some images being suboptimal in quality. Reason For Study: Resistant HTN, CHF, LVH Ordering Physician: HÉCTOR NICOLE Performed By: Phuong Galvez Interpretation Summary The left ventricular ejection fraction is normal. There is mild concentric left ventricular hypertrophy. The left ventricle is grossly normal size. Doppler measurements suggest pseudonormalized left ventricular relaxation, which is associated with grade II/IV or mild to moderate diastolic dysfunction Wall motion cannot be accurately commented on, but no definite regional wall motion abnormalities noted. The right ventricle is grossly normal size. The right ventricular systolic function is normal. The right atrium is normal in size The left atrium is mildly dilated. There is a mild amount of mitral regurgitation There is no mitral valve stenosis. No aortic regurgitation is present. There is no aortic valve stenosis There is a mild amount of tricuspid regurgitation There is mild pulmonary hypertension by echo Right ventricular systolic pressure is estimated to be elevated at 30-40mmHg. The aortic root is not well visualized but is probably normal size. The inferior vena cava appeared normal and decreased > 50% with respiration (RAP 5-10 mmHg) There is no pericardial effusion. MMode/2D Measurements & Calculations RVDd: 2.7 cm LVIDd: 4.7 cm FS: 33.2 % Ao root diam: 2.9 cm IVSd: 1.0 cm LVIDs: 3.1 cm EDV(Teich): 102.1 ml Ao root area: 6.5 cm2 LVPWd: 1.1 cm ESV(Teich): 39.0 ml EF(Teich): 61.8 % Doppler Measurements & Calculations MV E max jhon: MV P1/2t max jhon: Ao V2 max: LV V1 max P.2 cm/sec 105.7 cm/sec 188.1 cm/sec 8.0 mmHg MV A max jhon: MV P1/2t: 66.8 msec Ao max PG: LV V1 max: 98.2 cm/sec MVA(P1/2t): 3.3 cm2 14.2 mmHg 140.9 cm/sec MV E/A: 0.99 MV dec slope: 463.3 cm/sec2 MV dec time: 0.27 sec TV V2 max: PA V2 max: TR max jhon: MV P1/2t-pr_phl: 77.4 cm/sec 107.2 cm/sec 258.9 cm/sec 66.8 msec TV max PG: PA max P.6 mmHg TR max P.4 mmHg 26.8 mmHg Left Ventricle The left ventricle is grossly normal size. There is mild concentric left ventricular hypertrophy. The left ventricular ejection fraction is normal. Doppler measurements suggest pseudonormalized left ventricular relaxation, which is associated with grade II/IV or mild to moderate diastolic dysfunction. Wall motion cannot be accurately commented on, but no definite regional wall motion abnormalities noted. Right Ventricle The right ventricle is grossly normal size. There is normal right ventricular wall thickness. The right ventricular systolic function is normal. Atria The right atrium is normal in size. The left atrium is mildly dilated. Interarterial septum not well visualized and not well dopplered. Cannot comment on ASD/PFO presence. Mitral Valve The mitral valve leaflets are sclerotic, but show no functional abnormalities. There is no mitral valve stenosis. There is a mild amount of mitral regurgitation. Aortic Valve The aortic valve is grossly normal. There is no aortic valve stenosis. No aortic regurgitation is present. Tricuspid Valve The tricuspid valve is not well visualized, but is grossly normal. There is no tricuspid stenosis. There is a mild amount of tricuspid regurgitation. There is mild pulmonary hypertension by echo. Right ventricular systolic pressure is estimated to be elevated at 30-40mmHg. Pulmonic Valve The pulmonic valve is not well visualized. Great Vessels The aortic root is not well visualized but is probably normal size. The inferior vena cava appeared normal and decreased > 50% with respiration (RAP 5-10 mmHg). Effusions There is no pericardial effusion. : HÉCTOR NICOLE > Jethro Ann
--- NOTE | 2018-01-12 16:50 | PDOC PROGRESS REPORT ---
Subjective Progress Note for:: 01/12/18 Subjective:: The patient is a 57 year old female with a past medical history significant for hypertension, hyperlipidemia, remote kidney stones who was admitted 01/10/18 for angioedema and hypertensive urgency. The patient is seen on morning rounds. She is found resting in bed on room air. She apppears to be unwell this morning, reporting a eprsistent headache and nausea. She denies dizziness, photophobia, phonophobia, chest pain, palpitations, dyspnea, orthopnea, abdominal pain, nausea and vomiting. She reports that her headache is her typical daily discomfort. She has no other questions or concerns at this time. No concerns per nursing. Reason For Visit: ANGIOEDEMA, HYPERTENSION URGENCY Physical Exam Vital Signs: Temp Pulse Resp BP Pulse Ox 98.1 F 62 15 135/58 H 97 01/12/18 15:49 01/12/18 15:49 01/12/18 15:49 01/12/18 15:49 01/12/18 15:49 Intake & Output 01/11/18 01/12/18 01/13/18 06:59 06:59 06:59 Intake Total 2436 1459 237 Output Total 1200 1250 Balance 1236 209 237 Weight 111.9 kg 115.1 kg General appearance: PRESENT: no acute distress, cooperative, morbidly obese, well-developed, well-nourished Head exam: PRESENT: atraumatic, normocephalic Eye exam: PRESENT: conjunctiva pink, EOMI, PERRLA. ABSENT: scleral icterus Ear exam: PRESENT: normal external ear exam Mouth exam: PRESENT: moist, tongue midline Neck exam: ABSENT: carotid bruit, JVD, lymphadenopathy, thyromegaly Respiratory exam: PRESENT: clear to auscultation carito, symmetrical, unlabored. ABSENT: rales, rhonchi, wheezes Cardiovascular exam: PRESENT: RRR, +S1, +S2. ABSENT: diastolic murmur, rubs, systolic murmur Pulses: PRESENT: normal dorsalis pedis pul Vascular exam: PRESENT: normal capillary refill GI/Abdominal exam: PRESENT: normal bowel sounds, soft. ABSENT: distended, guarding, mass, organolmegaly, rebound, tenderness Rectal exam: PRESENT: deferred Extremities exam: PRESENT: full ROM. ABSENT: calf tenderness, clubbing, pedal edema Neurological exam: PRESENT: alert, awake, oriented to person, oriented to place , oriented to time, oriented to situation, CN II-XII grossly intact. ABSENT: motor sensory deficit Psychiatric exam: PRESENT: appropriate affect, normal mood. ABSENT: homicidal ideation, suicidal ideation Skin exam: PRESENT: dry, intact, warm. ABSENT: cyanosis, rash Results Laboratory Results: 01/12/18 04:29 01/12/18 04:29 01/12/18 01/12/18 01/12/18 04:29 04:29 04:29 WBC 9.4 RBC 4.12 Hgb 10.9 L Hct 32.2 L MCV 78 L MCH 26.4 L MCHC 33.8 RDW 14.6 H Plt Count 181 Retic Count (auto) 1.25 Absolute Retic 0.052 Sodium 141.1 Potassium 3.8 Chloride 107 Carbon Dioxide 25 Anion Gap 9 BUN 31 H Creatinine 1.24 Est GFR ( Amer) 54 L Est GFR (Non-Af Amer) 44 L Glucose 90 Calcium 9.3 Iron TIBC % Saturation Ferritin Vitamin B12 Folate 01/12/18 04:29 WBC RBC Hgb Hct MCV MCH MCHC RDW Plt Count Retic Count (auto) Absolute Retic Sodium Potassium Chloride Carbon Dioxide Anion Gap BUN Creatinine Est GFR ( Amer) Est GFR (Non-Af Amer) Glucose Calcium Iron 20.0 L TIBC 320 % Saturation 6 Ferritin 30.60 Vitamin B12 481.0 Folate 6.97 01/12/18 04:29 NT-Pro-B Natriuret Pep 2780 H Impressions: Head CT 01/10/18 10:41 IMPRESSION: NORMAL BRAIN CT WITHOUT CONTRAST. EVIDENCE OF ACUTE STROKE: NO. Vascular Ultrasound 01/11/18 09:55 IMPRESSION: Normal renal sonogram. Assessment & Plan - Diagnosis (1) Angioedema Qualifiers: Encounter type: initial encounter Qualified Code(s): T78.3XXA - Angioneurotic edema, initial encounter Is this a current diagnosis for this admission?: Yes Plan: Resolved; likely secondary to lisinopril. She denies any other new foods, medications, or environmental exposures. Received Solu-Medrol 125 mg upon arrival to the ED. She is admitted to the [facility] on continuous cardiac telemetry. Lisinopril/HCTZ has been discontinued. Benadryl every 8 hours as needed. (2) Hypertensive urgency Is this a current diagnosis for this admission?: Yes Plan: Severe, persistent HTN. Continues to have primarily systolic hypertension (198/ 83) EKG demonstrated normal sinus rhythm with LVH. Head CT is benign. Troponin is negative. TSH is low 0.33; however Free T3 and Free T4 do not support hyperthyroidism. Urine tox screen is negative. Renal Doppler is normal. ProBNP elevated to 2780 Echocardiogram pending. Lisinopril is held secondary to presumed angioedema. Avoid all KAYKAY/ARBS. Discussed with cardiology; appreciate Dr. Ann's assistance with management of severe HTN. Continue Norvasc 10 mg daily. Carvedilol 25 mg twice daily. Chlorthalidone 25 mg daily. 50 mg dose x1 today. Furosemide 20 mg IV x 1 today. IV hydralazine 10 mg every 6 hours as needed. Daily weights, strict I&Os, low sodium diet. (3) SHANDRA (acute kidney injury) Is this a current diagnosis for this admission?: Yes Plan: Improved, though slightly up today; Cr 1.38--> 1.05--> 1.24, BUN 35-->29-->31 SHANDRA likely secondary to dehydration; however, baseline creatinine is unknown and patient may actually have CKD. Urinalysis is heme (+) Renal Dopplers normal. Pt received ~ 4L IVF; now providing diuresis. Avoid nephrotoxic medications as able. Daily chemistries. (4) Headache Qualifiers: Headache type: unspecified Headache chronicity pattern: chronic headache Is this a current diagnosis for this admission?: Yes Plan: The patient reports daily headaches, often present upon waking, described as an intense aching in a headband pattern. The patient states that she does not miss work due to her headaches, however, immediately upon returning home and on her days off, participates very little in social activities or chores due to her headaches. She endorses overutilization of NSAIDs and Excedrin Migraine with minimal relief. She denies aura, photophobia, phonophobia, nausea and vomiting associated with her headaches. Head CT is normal. Thyroid panel is negative for hyperthyroidism. BP management as above. As needed analgesics. Recommend optometry screening as an outpatient. (5) Obesity (BMI 30-39.9) Is this a current diagnosis for this admission?: Yes Plan: Dietary discretion is advised. (6) Depression with anxiety Is this a current diagnosis for this admission?: Yes Plan: Discussed with patient; agreeable to initiating Lexapro. Declines psych evaluation. Recommended following up with an outpatient mental health provider. (7) Diastolic CHF Qualifiers: Heart failure chronicity: unspecified Qualified Code(s): I50.30 - Unspecified diastolic (congestive) heart failure Is this a current diagnosis for this admission?: Yes Plan: Patient was admitted with headache secondary to severe hypertension. Hypertension has been resistant to blood pressure medications; renal ultrasound was benign. TSH is normal. Troponin is negative ProBNP is elevated to 2780 Echocardiogram revealed normal ejection fraction with mild to moderate diastolic dysfunction and mild pulmonary hypertension. Medication management as above. Cardiology has been consulted. - Time Time Spent with patient: 25-34 minutes Medications reviewed and adjusted accordingly: Yes Anticipated discharge: Home Within: within 48 hours
--- NOTE | 2018-01-12 19:24 | PDOC CONSULTATION ---
Consultation Consult Date: 01/12/18 Attending physician:: ANIRUDH MAGUIRE Consult reason:: Shortness of breath and severe hypertension History of Present Illness Admission Date/PCP: 01/10/18 13:31 Patient complains of: Shortness of breath History of Present Illness: LAVELLE APONTE is a 57 year old female with a past medical history significant for hypertension, hyperlipidemia, remote kidney stones who presented to the emergency department today via EMS from her new PCPs office with angioedema of the right side of her tongue and right lips and hypertensive urgency; noted to have blood pressures 220/100 with complaint of persistent headache and dizziness. The patient was provided clonidine 0.2 mg and Solu-Medrol 125 mg IV per EMS prior to arrival. Evaluation in the emergency department reveals unremarkable laboratory evaluation other than acute kidney injury (creatinine 1.35, BUN 35), EKG demonstrating a normal sinus rhythm with LVH, and a normal head CT. She is referred to the hospitalist service for observational admission to monitor her resolving angioedema and management of hypertensive urgency. This history obtained was reviewed with the patient and confirmed. Patient denied any chest pain. She denied any prior history of myocardial infarction, angina, congestive heart failure. Patient has not seen a primary care physician in several years. Past Medical History Cardiac Medical History: Reports: Hyperlipidema, Hypertension Denies: Coronary Artery Disease, Myocardial Infarction Pulmonary Medical History: Reports: None EENT Medical History: Reports: None Neurological Medical History: Reports: None Endocrine Medical History: Reports: Obesity Renal/ Medical History: Reports: None Malignancy Medical History: Reports: None GI Medical History: Reports: None Musculoskeltal Medical History: Reports: None Skin Medical History: Reports: None Psychiatric Medical History: Reports: None, General Anxiety Disorder Traumatic Medical History: Reports: None Hematology: Reports: None Infectious Medical History: Reports: None Past Surgical History Past Surgical History: Reports: Section Social History Information Source: Patient, Parent Lives with: Family Smoking Status: Never Smoker Frequency of Alcohol Use: None Hx Recreational Drug Use: No Drugs: None Hx Prescription Drug Abuse: No - Advance Directive Resuscitation Status: Full Code Family History Family History: Hypertension - Negative for premature coronary artery disease or sudden cardiac in the family amongst first degree relatives. Parental Family History Reviewed: Yes Children Family History Reviewed: Yes Sibling(s) Family History Reviewed.: Yes Medication/Allergy Home Medications: Aspirin/Acetaminophen/Caffeine [Excedrin Migraine Caplet] 1 tab PO Q4HP PRN 02/17 Lisinopril/Hydrochlorothiazide [Zestoretic 20-25 mg Tablet] 1 tab PO DAILY 01/10 Allergies/Adverse Reactions: KAYKAY Inhibitors Adverse Reaction (Intermediate, Verified 01/12/18 12:59) Angioneurotic Edema ARB-Angiotensin Receptor Antagonist Adverse Reaction (Intermediate, Verified 12:59) Angioneurotic Edema Review of Systems Review of Systems: Please see history of present illness and past medical history as wall. Constitutional: No fever or chills reported. Head : No recent chronic headaches, recent head injury. Eyes: No recent eye pain, diplopia, redness, discharge, acute visual changes. Ears: No recent chronic ear pain, acute hearing loss, ear discharge. Oral cavity: No recent ulcerations, bleeding, oral cavity discomfort. Neck: No recent acute neck pain reported. Hematologic: No recent easy bruising or bleeding. Lymphatic: No recent lymph node enlargement reported. Cardiovascular system review: See history of present illness. Respiratory system review: No hemoptysis or blood clots in the lungs reported. Mild Shortness of breath on exertion Gastrointestinal system review: Negative for any recent acute hematemesis, melena. Genitourinary system review: No recent acute or chronic hematuria, flank pain, UTI etc. reported. Skin system review: Negative for any recent abnormal bruising, no rash, no pruritus reported. Neurologic: No prior history of strokes, mini strokes, seizure disorder. Psychologic: No history of major psychosis or major depression reported. Musculoskeletal: Minor aches and pains reported. No acute joint swelling reported. Endocrine: No recent polyuria, polydipsia, recent heat or cold intolerance. Physical Exam Vital Signs: Temp Pulse Resp BP Pulse Ox 98.1 F 62 15 135/58 H 97 01/12/18 15:49 01/12/18 15:49 01/12/18 15:49 01/12/18 15:49 01/12/18 15:49 Intake & Output 01/11/18 01/12/18 01/13/18 06:59 06:59 06:59 Intake Total 2436 1459 459 Output Total 1200 1250 Balance 1236 209 459 Weight 111.9 kg 115.1 kg Exam: GENERAL: well-nourished and in no acute distress. Alert and oriented x3 HEAD: Atraumatic, normocephalic. EYES: Pupils equal round and reactive to light, extraocular movements intact, sclera anicteric, conjunctiva are normal. ENT: TMs normal, nares patent, oropharynx clear without exudates. Moist mucous membranes. No oral ulcerations or bleeding gums noted NECK: supple without lymphadenopathy. Trachea is central. No cervical or axillary lymphadenopathy noted. Carotids are 2+, JVD WNL LUNGS: Respiration seems nonlabored, no significant accessory muscle action noted. Breath sounds clear to auscultation bilaterally and equal noted. No wheezes rales or rhonchi noted. No significant dullness noted on percussion. CHEST: Palpation of the chest wall shows no significant chest wall tenderness. HEART: [place] [employer], No PSH, 2/6 KERA aortic area, 1/6 hector systolic murmur mitral area , no rubs, no gallops. ABDOMEN: Soft, no significant tenderness appreciated, normoactive bowel sounds. No guarding, no rebound. No rigidity noted . No masses appreciated. EXTREMITIES: Pedal pulses are 1-2+, no calf tenderness noted. No clubbing or cyanosis. negative pedal edema noted NEUROLOGICAL: Focused neurological exam showed no significant neurologic deficit. Normal speech, no focal weakness appreciated. PSYCH: Normal mood, normal affect. Judgment and insight within normal limits. SKIN: No significant ecchymosis, skin is noted to be warm. MUSCULOSKELETAL EXAM: No significant acute joint swelling noted. Results Laboratory Results: 01/12/18 04:29 01/12/18 04:29 01/12/18 01/12/18 01/12/18 04:29 04:29 04:29 WBC 9.4 RBC 4.12 Hgb 10.9 L Hct 32.2 L MCV 78 L MCH 26.4 L MCHC 33.8 RDW 14.6 H Plt Count 181 Retic Count (auto) 1.25 Absolute Retic 0.052 Sodium 141.1 Potassium 3.8 Chloride 107 Carbon Dioxide 25 Anion Gap 9 BUN 31 H Creatinine 1.24 Est GFR ( Amer) 54 L Est GFR (Non-Af Amer) 44 L Glucose 90 Calcium 9.3 Iron TIBC % Saturation Ferritin Vitamin B12 Folate 01/12/18 04:29 WBC RBC Hgb Hct MCV MCH MCHC RDW Plt Count Retic Count (auto) Absolute Retic Sodium Potassium Chloride Carbon Dioxide Anion Gap BUN Creatinine Est GFR ( Amer) Est GFR (Non-Af Amer) Glucose Calcium Iron 20.0 L TIBC 320 % Saturation 6 Ferritin 30.60 Vitamin B12 481.0 Folate 6.97 01/12/18 04:29 NT-Pro-B Natriuret Pep 2780 H EKG Comments: Sinus rhythm, no acute ST-T wave changes are noted Impressions: Head CT 01/10/18 10:41 IMPRESSION: NORMAL BRAIN CT WITHOUT CONTRAST. EVIDENCE OF ACUTE STROKE: NO. Vascular Ultrasound 01/11/18 09:55 IMPRESSION: Normal renal sonogram. Assessment & Plan - Diagnosis (1) Hypertensive urgency Is this a current diagnosis for this admission?: Yes (2) Angioedema Qualifiers: Encounter type: initial encounter Qualified Code(s): T78.3XXA - Angioneurotic edema, initial encounter Is this a current diagnosis for this admission?: Yes (3) Obesity (BMI 30-39.9) Is this a current diagnosis for this admission?: Yes (4) SHANDRA (acute kidney injury) Is this a current diagnosis for this admission?: Yes (5) Diastolic CHF Qualifiers: Heart failure chronicity: unspecified Qualified Code(s): I50.30 - Unspecified diastolic (congestive) heart failure Is this a current diagnosis for this admission?: Yes - Notes Notes: Hypertensive urgency: Patient had severe hypertension. Renal artery stenosis has been ruled out. Patient could have underlying sleep apnea syndrome. Patient advised to get evaluated for it. Possibly just essential hypertension which has gone into a urgency face. Have been medication changes. Angioedema: Patient is allergic to KAYKAY inhibitor, ARB and entresto therapy. This was patient's initial presentation symptom. Obesity: Patient is been encouraged in weight loss. Patient could have underlying sleep apnea syndrome. May monitor for cortisol excess. Acute kidney injury: Most likely related to severe hypertension. Diastolic CHF: 2D echo shows relatively well-preserved LVEF. No significant valvular abnormalities were noted. Patient will benefit from weight loss, regular walking program. - Time Time Spent: 30 to 50 Minutes - More than 50% of the time spent coordinating care , discussing management plans with involved caregivers. Management plans discussed with involved personnels. Medical decision making was of moderate to high complexity, patient's has multiple comorbidities. Medications reviewed and adjusted accordingly: Yes
[2018-01-12] MEDS: ESCITALOPRAM OXALATE 10 MG TABLET PO SCH (21:04)
[2018-01-12] MEDS: ZOLPIDEM TARTRATE 5 MG TABLET PO PRN (21:04)
[2018-01-13 05:45] LABS: ANION GAP 8 (5-19); BLOOD UREA NITROGEN 23 mg/dL (7-20); CARBON DIOXIDE 28 mmol/L (22-30); CHLORIDE 101 mmol/L (98-107); GLUCOSE 87 mg/dL (75-110); POTASSIUM 3.5 mmol/L (3.6-5.0); SODIUM 137.3 mmol/L (137-145)
[2018-01-13] MEDS: HEPARIN SOD (PORCINE) 5,000 UNIT/ML 1 ML SYRINGE SUBCUT SCH ×2 (06:44→13:58)
[2018-01-13] MEDS: MORPHINE SULFATE 10 MG/ML INJ IV PRN (08:04)
[2018-01-13] MEDS: HYDRALAZINE HCL INJ/PF 20 MG/1 ML SDV IV PRN (08:10)
[2018-01-13] MEDS ORDERED: HYDRALAZINE HCL INJ/PF 20 MG/1 ML SDV IV PRN (09:31)
[2018-01-13] MEDS ORDERED: HYDRALAZINE HCL 25 MG TABLET PO SCH ×3 (10:00→14:00)
[2018-01-13] MEDS ORDERED: FERROUS SULFATE 325 MG TABLET PO SCH (10:00)
[2018-01-13] MEDS ORDERED: SPIRONOLACTONE 25 MG TABLET PO SCH ×2 (10:00→15:30)
[2018-01-13] MEDS ORDERED: CHLORTHALIDONE 25 MG TABLET PO SCH (10:00)
[2018-01-13] MEDS: AMLODIPINE BESYLATE 5 MG TABLET PO SCH (10:01)
[2018-01-13] MEDS: CARVEDILOL 12.5 MG TABLET PO SCH (10:01)
[2018-01-13] MEDS: DOCUSATE SODIUM 100 MG CAPSULE PO SCH (10:02)
[2018-01-13] MEDS: FAMOTIDINE 20 MG TABLET PO SCH (10:02)
--- NOTE | 2018-01-13 15:06 | PDOC PROGRESS REPORT ---
Subjective Progress Note for:: 01/13/18 Subjective:: Patient seems to be doing better with gradual improvement. Blood pressure noted to be intermittently very high. Pt is denying any chest arm or neck discomfort. Patient denying any PND, orthopnea. Patient denied any sustained palpitations, dizziness, syncope, near syncope. Patient denying any fever chills. Patient denying any other significant discomfort. Patient is noted to have a flat possibly depressed affect but denies any overt depression. Patient is maintaining sinus rhythm. Review of systems: Rest review of systems negative. Medications: Medications have been reviewed. Reason For Visit: ANGIOEDEMA, HYPERTENSION URGENCY Physical Exam Vital Signs: Temp Pulse Resp BP Pulse Ox 98.8 F 56 L 16 120/70 98 01/13/18 11:00 01/13/18 14:00 01/13/18 11:00 01/13/18 11:00 01/13/18 11:00 Intake & Output 01/12/18 01/13/18 01/14/18 06:59 06:59 06:59 Intake Total 1459 459 222 Output Total 1250 Balance 209 459 222 Weight 115.1 kg 111.6 kg Exam: GENERAL: well-nourished and in no acute distress. Alert and oriented x3 HEAD: Atraumatic, normocephalic. EYES: Pupils equal round and reactive to light, extraocular movements intact, sclera anicteric, conjunctiva are normal. ENT: TMs normal, nares patent, oropharynx clear without exudates. Moist mucous membranes. No oral ulcerations or bleeding gums noted NECK: supple without lymphadenopathy. Trachea is central. No cervical or axillary lymphadenopathy noted. Carotids are 2+, JVD WNL LUNGS: Respiration seems nonlabored, no significant accessory muscle action noted. Breath sounds clear to auscultation bilaterally and equal noted. No wheezes rales or rhonchi noted. No significant dullness noted on percussion. CHEST: Palpation of the chest wall shows no significant chest wall tenderness. HEART: [place] [employer]ER, No PSH, 1/6 KERA aortic area, 1/6 hector systolic murmur mitral area, no rubs, no gallops. ABDOMEN: Soft, no significant tenderness appreciated, normoactive bowel sounds. No guarding, no rebound. No rigidity noted . No masses appreciated. EXTREMITIES: Pedal pulses are 1-2+, no calf tenderness noted. No clubbing or cyanosis. negative pedal edema noted NEUROLOGICAL: Focused neurological exam showed no significant neurologic deficit. Normal speech, no focal weakness appreciated. PSYCH: Normal mood, normal affect. Judgment and insight within normal limits. SKIN: No significant ecchymosis, skin is noted to be warm. MUSCULOSKELETAL EXAM: No significant acute joint swelling noted. Results Laboratory Results: 01/12/18 04:29 01/13/18 04:46 01/13/18 04:46 Sodium 137.3 Potassium 3.5 L Chloride 101 Carbon Dioxide 28 Anion Gap 8 BUN 23 H Creatinine 1.08 Est GFR ( Amer) > 60 Est GFR (Non-Af Amer) 52 L Glucose 87 Calcium 9.0 01/12/18 01/13/18 04:29 04:46 NT-Pro-B Natriuret Pep 2780 H 2050 H EKG Comments: Telemetry shows sinus rhythm without any sustained tachycardia or bradycardia. Impressions: Head CT 01/10/18 10:41 IMPRESSION: NORMAL BRAIN CT WITHOUT CONTRAST. EVIDENCE OF ACUTE STROKE: NO. Vascular Ultrasound 01/11/18 09:55 IMPRESSION: Normal renal sonogram. Assessment & Plan - Diagnosis (1) Hypertensive urgency Is this a current diagnosis for this admission?: Yes (2) Angioedema Qualifiers: Encounter type: initial encounter Qualified Code(s): T78.3XXA - Angioneurotic edema, initial encounter Is this a current diagnosis for this admission?: Yes (3) Obesity (BMI 30-39.9) Is this a current diagnosis for this admission?: Yes (4) SHANDRA (acute kidney injury) Is this a current diagnosis for this admission?: Yes (5) Diastolic CHF Qualifiers: Heart failure chronicity: unspecified Qualified Code(s): I50.30 - Unspecified diastolic (congestive) heart failure Is this a current diagnosis for this admission?: Yes - Notes Notes: Hypertensive urgency: Patient had intermittent severe hypertension. Renal artery stenosis has been ruled out. Patient could have underlying sleep apnea syndrome. Patient advised to get evaluated for it. Patient was placed on chlorthalidone yesterday. Potassium noted to be somewhat low at 3.5. Have added spironolactone 50 mg p.o. daily which is a good medication for resistant hypertension. Patient does respond to hydralazine. Continue with oral hydralazine. Have been medication changes. Angioedema: Patient is allergic to KAYKAY inhibitor, ARB and entresto therapy. This was patient's initial presentation symptom. Obesity: Patient is been encouraged in weight loss. Patient could have underlying sleep apnea syndrome. May monitor for cortisol excess. Acute kidney injury: Most likely related to severe hypertension. Renal functions have significantly improved. Diastolic CHF: 2D echo shows relatively well-preserved LVEF. No significant valvular abnormalities were noted. Patient will benefit from weight loss, regular walking program. - Time Time with patient: Greater than 35 minutes - CODE STATUS was discussed, patient remains full code. Surrogate decision-maker unchanged. Multiple medical problems were addressed. More than 50% of the time spent coordinating care, discussing management plans with involved caregivers. Management plans discussed with involved personnels. Medical decision making was of moderate to high complexity, patient's has multiple comorbidities. Medications reviewed and adjusted accordingly: Yes - Multiple medication changes made and recommended
[2018-01-13] MEDS ORDERED: AMLODIPINE BESYLATE 5 MG TABLET PO SCH (15:12)
[2018-01-13 16:59] VITALS: BP 174/86
--- NOTE | 2018-01-13 17:30 | PDOC DISCHARGE SUMMARY ---
General - Admit/Disc Date/PCP Admission Date/Primary Care Provider: 01/10/18 13:31 Discharge Date: 01/13/18 - Discharge Diagnosis (1) Angioedema Is this a current diagnosis for this admission?: Yes Summary: Resolved following 1 dose of IV Solu-Medrol 125 mg. Patient is instructed to avoid all KAYKAY/ARBS and to report this as an allergy to her medical providers. (2) Hypertensive urgency Is this a current diagnosis for this admission?: Yes Summary: Severe HTN; admitted with blood pressures of 209/89. Somewhat liable: 112/49 - 178/69 today but overall improved. EKG demonstrated normal sinus rhythm with LVH. Head CT is benign. Troponin is negative. TSH is low 0.33; however Free T3 and Free T4 do not support hyperthyroidism. Urine tox screen is negative. Renal Doppler is normal. ProBNP elevated to 2780 Echocardiogram reveals mild to moderate diastolic dysfunction with a normal LVEF and mild pulmonary hypertension.. Cardiology, Dr. Ann, was consulted secondary to difficulty obtaining blood pressure control. She was placed on Norvasc 5 mg, carvedilol 25 mg twice daily, chlorthalidone 25 mg daily, hydralazine 25 mg every 8 hours, and spironolactone 25 mg daily. She was educated on the importance of a cardiac diet and daily weights. She is encouraged to follow-up with Dr. Ann in 1 week. (3) SHANDRA (acute kidney injury) Is this a current diagnosis for this admission?: Yes Summary: Resolved; Creatinine 1.38 on admission and has trended down to 1.08 with IVF and blood pressure control. (4) Headache Is this a current diagnosis for this admission?: Yes Summary: Improved; likely related to hypertension. Head CT is normal. Thyroid panel is negative for hyperthyroidism. (5) Obesity (BMI 30-39.9) Is this a current diagnosis for this admission?: Yes (6) Depression with anxiety Is this a current diagnosis for this admission?: Yes Summary: Discussed with patient; agreeable to initiating medication. She is provided a prescription for Zoloft on discharge. (7) Diastolic CHF Is this a current diagnosis for this admission?: Yes Summary: Troponin is negative ProBNP is elevated to 2780--> 2050 Echocardiogram revealed normal ejection fraction with mild to moderate diastolic dysfunction and mild pulmonary hypertension. Management as above. - Additional Information Resuscitation Status: Full Code Discharge Diet: Cardiac Discharge Activity: Activity As Tolerated, Balance Activity w/Rest Prescriptions: Amlodipine Besylate [Norvasc 5 mg Tablet] 5 mg PO QHS #30 tablet Carvedilol [Coreg 12.5 mg Tablet] 25 mg PO Q12 #60 tablet Chlorthalidone [Hygroton 25 mg Tablet] 25 mg PO DAILY #30 tablet Ferrous Sulfate [Feosol 325 mg Tablet] 325 mg PO DAILY #30 tablet Hydralazine HCl [Apresoline 25 mg Tablet] 25 mg PO Q8 #90 tablet Ondansetron [Zofran Odt 4 mg Tablet] 4 mg PO Q6HP PRN #24 tab.rapdis PRN Reason: Sertraline HCl [Zoloft] 25 mg PO QHS #30 tablet Spironolactone [Aldactone 25 mg Tablet] 50 mg PO QAM #60 tablet Home Medications: Aspirin/Acetaminophen/Caffeine [Excedrin Migraine Caplet] 1 tab PO Q4HP PRN 02/17 Acetaminophen [Tylenol 325 mg Tablet] 650 mg PO Q4HP PRN tablet 01/13/18 Amlodipine Besylate [Norvasc 5 mg Tablet] 5 mg PO QHS #30 tablet 01/13/18 Carvedilol [Coreg 12.5 mg Tablet] 25 mg PO Q12 #60 tablet 01/13/18 Chlorthalidone [Hygroton 25 mg Tablet] 25 mg PO DAILY #30 tablet 01/13/18 Ferrous Sulfate [Feosol 325 mg Tablet] 325 mg PO DAILY #30 tablet 01/13/18 Hydralazine HCl [Apresoline 25 mg Tablet] 25 mg PO Q8 #90 tablet 01/13/18 Ondansetron [Zofran Odt 4 mg Tablet] 4 mg PO Q6HP PRN #24 tab.rapdis 01/13/18 Sertraline HCl [Zoloft] 25 mg PO QHS #30 tablet 01/13/18 Spironolactone [Aldactone 25 mg Tablet] 50 mg PO QAM #60 tablet 01/13/18 History of Present Illness History of Present Illness: LAVELLE APONTE is a 57 year old female with a past medical history significant for hypertension, hyperlipidemia, remote kidney stones who presented to the emergency department today via EMS from her new PCPs office with angioedema of the right side of her tongue and right lips and hypertensive urgency; noted to have blood pressures 220/100 with complaint of persistent headache and dizziness. The patient was provided clonidine 0.2 mg and Solu-Medrol 125 mg IV per EMS prior to arrival. Evaluation in the emergency department reveals unremarkable laboratory evaluation other than acute kidney injury (creatinine 1.35, BUN 35), EKG demonstrating a normal sinus rhythm with LVH, and a normal head CT. She is referred to the hospitalist service for observational admission to monitor her resolving angioedema and management of hypertensive urgency. Physical Exam Vital Signs: Temp Pulse Resp BP Pulse Ox 98.1 F 62 16 174/86 H 97 01/13/18 16:51 01/13/18 16:51 01/13/18 16:51 01/13/18 16:51 01/13/18 16:51 Intake & Output 01/12/18 01/13/18 01/14/18 06:59 06:59 06:59 Intake Total 1459 459 222 Output Total 1250 Balance 209 459 222 Weight 115.1 kg 111.6 kg General appearance: PRESENT: no acute distress, morbidly obese, well-developed, well-nourished Head exam: PRESENT: atraumatic, normocephalic Eye exam: PRESENT: conjunctiva pink, EOMI, PERRLA. ABSENT: scleral icterus Ear exam: PRESENT: normal external ear exam Mouth exam: PRESENT: moist, tongue midline Neck exam: ABSENT: carotid bruit, JVD, lymphadenopathy, thyromegaly Respiratory exam: PRESENT: clear to auscultation carito, symmetrical, unlabored. ABSENT: rales, rhonchi, wheezes Cardiovascular exam: PRESENT: RRR. ABSENT: diastolic murmur, rubs, systolic murmur Pulses: PRESENT: normal dorsalis pedis pul Vascular exam: PRESENT: normal capillary refill GI/Abdominal exam: PRESENT: normal bowel sounds, soft. ABSENT: distended, guarding, mass, organolmegaly, rebound, tenderness Rectal exam: PRESENT: deferred Extremities exam: PRESENT: full ROM. ABSENT: calf tenderness, clubbing, pedal edema Neurological exam: PRESENT: alert, awake, oriented to person, oriented to place , oriented to time, oriented to situation, CN II-XII grossly intact. ABSENT: motor sensory deficit Psychiatric exam: PRESENT: appropriate affect, normal mood. ABSENT: homicidal ideation, suicidal ideation Skin exam: PRESENT: dry, intact, warm. ABSENT: cyanosis, rash Results Laboratory Results: 01/12/18 04:29 01/13/18 04:46 01/13/18 04:46 Sodium 137.3 Potassium 3.5 L Chloride 101 Carbon Dioxide 28 Anion Gap 8 BUN 23 H Creatinine 1.08 Est GFR ( Amer) > 60 Est GFR (Non-Af Amer) 52 L Glucose 87 Calcium 9.0 01/12/18 01/13/18 04:29 04:46 NT-Pro-B Natriuret Pep 2780 H 2050 H Impressions: Head CT 01/10/18 10:41 IMPRESSION: NORMAL BRAIN CT WITHOUT CONTRAST. EVIDENCE OF ACUTE STROKE: NO. Vascular Ultrasound 01/11/18 09:55 IMPRESSION: Normal renal sonogram. Qualifiers - * PATIENT BEING DISCHARGED WITH ANY OF THE FOLLOWING DIAGNOSIS: Heart Failure HF Pt being discharged on ACEI for LVEF less than 40%?: No Reason(s) for not prescribing ACEI:: Drug allergy HF Pt being discharged on ARBS for LVEF less than 40%?: No Reason(s) for not prescribing ARBS:: Drug allergy HF Pt with Afib discharged with Warfarin?: No Reason(s) for not prescribing Warfarin:: Not indicated HF Pt discharged on evidence-based Beta Hedy:: Yes Plan Discharge Plan: Discharge to home. Follow-up with primary care provider within 1-2 weeks. Sollow-up with Dr. Ann within 1 week. Time Spent: Less than 30 Minutes
== END 2018-01-13 17:56 | disposition home or self-care (01) ==
LOC: ER 10:20 → EH 13:31 → 3W 14:40
PROVIDERS: ADMIT Internal Medicine; ATTEND Internal Medicine
DX: T78.3XXA Angioneurotic edema, initial encounter (principal); I16.0 Hypertensive urgency; I11.0 Hypertensive heart disease with heart failure; I50.30 Unspecified diastolic (congestive) heart failure; I27.20 Pulmonary hypertension, unspecified; N17.9 Acute kidney failure, unspecified; R51 Headache; E66.01 Morbid (severe) obesity due to excess calories; F41.8 Other specified anxiety disorders; Z68.39 Body mass index [BMI] 39.0-39.9, adult; Z79.82 Long term (current) use of aspirin; Z79.899 Other long term (current) drug therapy; Z82.49 Family history of ischemic heart disease and other diseases of the circulatory system; Z66 Do not resuscitate; Z88.8 Allergy status to other drugs, medicaments and biological substances
CPT/HCPCS: 93005; 99285; 96374; 36415 ×4; 84439; 82607; 82728; 82746; 83540; 83550; 84443; 85025; 85027 ×2; 85045; 80048 ×3; 80053; 81001; 84484; 80307; 84481; 83036; 80061; 83880 ×2; 93306; 93976; 70450; 93010; G0378 ×5; J1644 ×4; S0119; J1940; J0360 ×4; J1885; J3490 ×7; J2270 ×2; J2405; J7030 ×2

== ENCOUNTER 2018-09-20 00:55 | Emergency (ER) | payer OTHER, BC ==
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
[2018-09-20 07:04] VITALS: BP 149/81
== END 2018-09-20 07:06 | disposition home or self-care (01) ==
LOC: ER 00:55
DX: S62.232A Other displaced fracture of base of first metacarpal bone, left hand, initial encounter for closed fracture (principal); S16.1XXA Strain of muscle, fascia and tendon at neck level, initial encounter; S20.219A Contusion of unspecified front wall of thorax, initial encounter; R51 Headache; M54.2 Cervicalgia; M54.9 Dorsalgia, unspecified; M79.645 Pain in left finger(s); V49.9XXA Car occupant (driver) (passenger) injured in unspecified traffic accident, initial encounter; F17.200 Nicotine dependence, unspecified, uncomplicated; I10 Essential (primary) hypertension
CPT/HCPCS: 71111; 99284

== ENCOUNTER 2018-09-30 09:00 | Day surgery (SDC) | payer OTHER, BC ==
[2018-09-27 10:28] LABS: APPEARANCE,URINE CLEAR; BILIRUBIN,URINE NEGATIVE (NEGATIVE); COLOR,URINE STRAW; GLUCOSE, URINE NEGATIVE (NEGATIVE); KETONES,URINE NEGATIVE (NEGATIVE); LEUKOCYTE ESTERASE,URINE TRACE (NEGATIVE); NITRITE,URINE NEGATIVE (NEGATIVE); PROTEIN,URINE NEGATIVE (NEGATIVE); UROBILINOGEN,URINE NEGATIVE mg/dL (<2.0)
--- NOTE | 2018-09-29 00:10 | EKG REPORT ---
SEVERITY:- ABNORMAL ECG - SINUS RHYTHM LVH WITH SECONDARY REPOLARIZATION ABNORMALITY : Confirmed by: Jethro Ann 29-Sep-2018 00:09:16
[~2018-09-30 09:00] MED LIST: CEFAZOLIN 2 GM/D5W RTU 2 GM/50 ML RTUPB IV PRN; DEXAMETHASONE SOD PHOSPHATE INJ 4 MG/1 ML VIAL ONE; FENTANYL CITRATE INJ/PF 100 MCG/2 ML AMPUL ONE; LACTATED RINGERS 1000 ML IV PRN; LIDOCAINE 0.5% INJ-PF (5 MG/ML) 50 ML SDV SUBCUT PRN; MIDAZOLAM 2 MG/2 ML INJ ONE; ONDANSETRON HCL INJ/PF 4 MG/2 ML SDV ONE; PROPOFOL INJ 200 MG/20 ML VIAL IV ONE
[2018-09-30] MEDS ORDERED: CEFAZOLIN 2 GM/D5W RTU 2 GM/50 ML RTUPB IV ONE (09:05)
[2018-09-30 09:31] LABS: HEMOGLOBIN 11.8 g/dL (12.0-15.5); MEAN CORPUSCULAR HEMOGLOBIN 26.2 pg (27.0-33.4); MEAN CORPUSCULAR HGB CONC 33.6 g/dL (32.0-36.0); MEAN CORPUSCULAR VOLUME 78 fl (80-97); PLATELET COUNT 201 10^3/uL (150-450); RED BLOOD COUNT 4.48 10^6/uL (3.72-5.28); RED CELL DISTRIBUTION WIDTH 14.9 % (11.5-14.0); WHITE BLOOD COUNT 7.9 10^3/uL (4.0-10.5)
[2018-09-30] MEDS ORDERED: ONDANSETRON HCL INJ/PF 4 MG/2 ML SDV ONE (09:50)
[2018-09-30] MEDS ORDERED: FENTANYL CITRATE INJ/PF 100 MCG/2 ML AMPUL ONE ×3 (09:50→11:30)
[2018-09-30] MEDS ORDERED: PROPOFOL INJ 200 MG/20 ML VIAL IV ONE (09:50)
[2018-09-30] MEDS ORDERED: MIDAZOLAM 2 MG/2 ML INJ ONE (09:50)
[2018-09-30 10:03] LABS: ANION GAP 8 (5-19); BLOOD UREA NITROGEN 25 mg/dL (7-20); CALCIUM 9.5 mg/dL (8.4-10.2); CARBON DIOXIDE 33 mmol/L (22-30); CHLORIDE 99 mmol/L (98-107); GLUCOSE 95 mg/dL (75-110); POTASSIUM 3.7 mmol/L (3.6-5.0); SODIUM 140.4 mmol/L (137-145)
[2018-09-30] MEDS ORDERED: BUPIVACAINE HCL 0.25 % INJ/PF (2.5 MG/1 ML) 30 ML VIAL ONE (10:22)
[2018-09-30] MEDS ORDERED: MEPERIDINE HCL/PF INJ 25 MG/1 ML DISP.SYRIN IV PRN (11:02)
[2018-09-30] MEDS ORDERED: OXYCODONE-ACETAMINOPHEN 5-325 MG TABLET PO PRN ×3 (11:02→11:30)
[2018-09-30] MEDS ORDERED: FENTANYL CITRATE INJ/PF 100 MCG/2 ML AMPUL IV PRN ×2 (11:02)
[2018-09-30] MEDS ORDERED: MORPHINE SULFATE 10 MG/ML INJ IV PRN (11:02)
[2018-09-30] MEDS ORDERED: ONDANSETRON HCL INJ/PF 4 MG/2 ML SDV IV PRN (11:02)
[2018-09-30] MEDS ORDERED: DIPHENHYDRAMINE HCL 50 MG/ML VIAL IV PRN (11:02)
[2018-09-30] MEDS ORDERED: PROMETHAZINE HCL INJ 25 MG/1 ML VIAL IV PRN ×2 (11:02)
--- NOTE | 2018-09-30 11:11 | Discharge Summary ---
Discharge Summary (SDC) - Discharge Final Diagnosis: Left Wellingot[place]'s fracture Date of Surgery: 09/30/18 Discharge Date: 09/30/18 Condition: Good Treatment or Instructions: Elevate left upper extremity when possible Prescriptions: Oxycodone HCl/Acetaminophen [Percocet 5-325 mg Tablet] 1 tab PO Q6 PRN #40 tablet PRN Reason: Referrals: DIANA CAVANAUGH PA-C [Primary Care Provider] - Discharge Diet: As Tolerated, Regular Respiratory Treatments at Home: Deep Breathing/Coughing Discharge Activity: Balance Activity w/Rest Home Care Assistance: None Needed Report the Following to Your Physician Immediately: Shortness of Breath, Fever over 101 Degrees, Drainage-Foul Smelling
--- NOTE | 2018-09-30 11:13 | Operative Report ---
Operative Report DATE OF SURGERY: 09/30/18 PREOPERATIVE DIAGNOSIS: Left Wellington's fracture OPERATION: Closed reduction percutaneous fixation left Bennetts fracture SURGEON: JO-ANN BEST ANESTHESIA: GA ESTIMATED BLOOD LOSS: Normal PROCEDURE: With the patient supine on the operating table the left upper extremities prepped and draped in a sterile fashion. A combination of distraction and ulnar-based force under fluoroscopic guidance leads to a near anatomic reduction of the saddle joint at the base of the first carpometacarpal joint. Two 0.26 K wires were placed from the first metacarpal into the second metacarpal to maintain the reduction. A sterile dressing and plaster splint were applied and the patient's return to the PACU in satisfactory condition.
[2018-09-30] MEDS: FENTANYL CITRATE INJ/PF 100 MCG/2 ML AMPUL IV PRN ×2 (11:31→11:39)
[2018-09-30] MEDS: HYDROMORPHONE HCL INJ/PF 2 MG/ML AMPULE ONE ×2 (11:34→11:44)
[2018-09-30] MEDS ORDERED: OXYCODONE-ACETAMINOPHEN 5-325 MG TABLET ONE (12:23)
[2018-09-30 13:19] VITALS: BP 190/90
--- NOTE | 2018-09-30 14:10 | RADIOLOGY REPORT (SQ) ---
EXAM DESCRIPTION: NO CHG FLUORO; FINGER LEFT COMPLETED DATE/TIME: 09/30/2018 1:43 pm REASON FOR STUDY: PERCUTANEOUS PINNING LEFT THUMB ASST WITH FLUORO IN OR S62. UNSP FRACTURE OF FIRST METACARPAL BONE, LEFT HAND, COMPARISON: None. FLUOROSCOPY TIME: 27 seconds 5 images saved to PACS. TECHNIQUE: Intra-operative images acquired during surgical procedure to evaluate progress. NUMBER OF IMAGES: 5 LIMITATIONS: None. FINDINGS: Fluoroscopic images from pin fixation of proximal 1st metacarpal fracture. IMPRESSION: IMAGE(S) OBTAINED DURING PROCEDURE. COMMENT: Quality ID [id number]: Final reports for procedures using fluoroscopy that document radiation exp osure indices, or exposure time and number of fluorographic images (if radiation exposure indices are not available) Please consult full operative report of the attending physician for description of the procedure. TECHNICAL DOCUMENTATION: JOB ID: [id number] [employer]- All Rights Reserved Reading location - IP/workstation name: [email or web address]
--- NOTE | 2018-09-30 14:10 | RADIOLOGY REPORT (SQ) ---
EXAM DESCRIPTION: NO CHG FLUORO; FINGER LEFT COMPLETED DATE/TIME: 09/30/2018 1:43 pm REASON FOR STUDY: PERCUTANEOUS PINNING LEFT THUMB ASST WITH FLUORO IN OR S62. UNSP FRACTURE OF FIRST METACARPAL BONE, LEFT HAND, COMPARISON: None. FLUOROSCOPY TIME: 27 seconds 5 images saved to PACS. TECHNIQUE: Intra-operative images acquired during surgical procedure to evaluate progress. NUMBER OF IMAGES: 5 LIMITATIONS: None. FINDINGS: Fluoroscopic images from pin fixation of proximal 1st metacarpal fracture. IMPRESSION: IMAGE(S) OBTAINED DURING PROCEDURE. COMMENT: Quality ID [id number]: Final reports for procedures using fluoroscopy that document radiation exp osure indices, or exposure time and number of fluorographic images (if radiation exposure indices are not available) Please consult full operative report of the attending physician for description of the procedure. TECHNICAL DOCUMENTATION: JOB ID: [id number] [employer] All Rights Reserved Reading location - IP/workstation name: [email or web address]
[2018-09-30] MEDS ORDERED: SUCCINYLCHOLINE CHLORIDE INJ 200 MG/10 ML VIAL ONE (17:31)
== END 2018-09-30 13:32 | disposition home or self-care (01) ==
LOC: OROUT 09:00
PROVIDERS: ATTEND Orthopaedic Surgery
DX: S62.212A Bennett's fracture, left hand, initial encounter for closed fracture (principal); X58.XXXA Exposure to other specified factors, initial encounter; I10 Essential (primary) hypertension; E66.9 Obesity, unspecified; Z68.41 Body mass index [BMI] 40.0-44.9, adult; Z79.899 Other long term (current) drug therapy
CPT/HCPCS: 93005; 36415; 85027; 80048; 81001; 73140; 93010; 01820; 26650; C1713; J2250; J3010; J1170; J0330; J2405; J2704; J0690; J1100